=== PATIENT | male | born 1990 | race Hispanic/Latino ===

== ENCOUNTER 2023-12-14 06:31 | Emergency (ER) | payer SELFPAY ==
--- OUTSIDE RECORDS SUMMARY | 2023-12-14 06:33 | XMS REPORT | Continuity of Care Document ---
Author Name Unknown Address [address] [place] [address] [place] Address [address] [facility] 1 495 [place] [address] Care Team Providers Care Banking Consultant Name Role Phone Unavailable Unavailable Unavailable Encounters Start Date/Time End Date/Time Encounter Type Admission Type Attending Clinicians Care Facility Care Department Encounter ID Source 2023-09-19 09:31:42 2023-09-19 09:31:42 Outpatient [facility] [id number] Shantanu Young
[2023-12-14 07:08] LABS: Absolute Basophils 0.1 K/uL (0-0.5); Absolute Lymphocytes (CBC) 1.7 K/uL (0.7-4.9); Absolute Monocytes 1.5 K/uL (0.1-1.3); Absolute Neutrophil 11.2 K/uL (1.8-8.0); Basophils % 0.4 % (0-1.3); Eosinophils % 0.2 % (0-4.4); Hemoglobin 16.5 g/dL (13.6-17.9); Lymphocytes % 11.5 % (15.3-44.8); MCH 31.5 pg (27.0-35.0); MCHC 33.6 g/dL (32.0-36.0); MCV 93.9 fL (80-100); MPV 7.9 fL (7.6-11.3); Monocytes % 10.3 % (3.3-12.3); Neutrophils % 77.6 % (41.7-73.7); Nucleated Red Blood Cells % 0.1 % (0-0); Platelets 328 thou/uL (152-406); RBC Red Blood Cell Count 5.22 M/uL (4.33-5.43); Red Cell Distribution Width 14.8 % (12.1-15.2)
[2023-12-14 07:27] LABS: Albumin 3.7 g/dL (3.4-5.0); Albumin/Globulin Ratio 0.9 (1.1-1.8); Anion Gap 10.3 mEq/L (5.0-15.0); Bilirubin Total 1.2 mg/dL (0.2-1.0); Globulin 4.2 g/dL (2.3-3.5); Potassium 3.3 mEq/L (3.5-5.1); Protein, Total 7.9 g/dL (6.4-8.2)
--- NOTE | 2023-12-14 08:18 | RAD REPORT ---
EXAM DESCRIPTION: CT - FC CLINICAL HISTORY: SWELLING COMPARISON: No comparisons TECHNIQUE: Axial thin cut CT images of the face were obtained with sagittal and coronal reconstructi on images, following intravenous administration of 100 mL Isovue-300. All CT scans are performed using dose optimization technique as appropriate and may include automated exposure control or mA/KV adjustment according to patient size. FINDINGS: Multiple periapical collections, including sizable collections along the roots of the maxi llary lateral incisors, and a smaller collection at the root of the left maxillary central incisor, w hich demonstrates a small buccal cortex defect. Overlying subperiosteal collection with fluid and gas within, with marginal enhancement, measuring 9 mm in greatest diameter and 3 mm in thickness. Pronounced overlying soft tissue swelling of the left cheek and upper lip. No acute facial bone fracture is seen.The mandible is intact. The globes and orbital contents are grossly unremarkable.The paranasal sinuses and mastoids are clear . IMPRESSION: Periapical abscesses along the maxillary incisors, with a small buccal cortex defect eliot ng the left central maxillary incisor collection. A 9 mm subperiosteal abscess overlies this collecti on, with adjacent pronounced soft tissue swelling of the left cheek and upper lip.
[2023-12-14] MEDS ORDERED: NS KCL 20MEQ 1,000 ML IV ONE (08:23)
--- NOTE | 2023-12-14 08:30 | EDPHYS ---
Physician Documentation [facility] Name: Lee Reynoso Age: 33 yrs Sex: Male : 1990 Arrival Date: 12/14/2023 Time: : Bed 15 Private MD: ED Physician Zeb Ojeda HPI: 12/13 06:48 This 33 yrs old Male presents to ER via Unassigned with complaints of christiano Toothache, Lips Swelling, Facial Swelling. 06:48 The patient presents with swelling. christiano Historical: - Allergies: 06:50 No Known Allergies; rg5 - PMHx: 06:50 None; rg5 - Immunization history:: Adult Immunizations up to date. - Infectious Disease History:: Denies. - Family history:: not pertinent. - Social history:: Smoking status: Patient denies any tobacco usage or history of. ROS: 06:48 Constitutional: Negative for fever, chills, and weight loss, Eyes: Negative for injury, christiano pain, redness, and discharge, Neck: Negative for injury, pain, and swelling, Cardiovascular: Negative for chest pain, palpitations, and edema, Respiratory: Negative for shortness of breath, cough, wheezing, and pleuritic chest pain, Abdomen/GI: Negative for abdominal pain, nausea, vomiting, diarrhea, and constipation, Back: Negative for injury and pain, : Negative for injury, bleeding, discharge, and swelling, MS/Extremity: Negative for injury and deformity, Skin: Negative for injury, rash, and discoloration, Neuro: Negative for headache, weakness, numbness, tingling, and seizure, Psych: Negative for depression, anxiety, suicide ideation, homicidal ideation, and hallucinations, Allergy/Immunology: Negative for hives, rash, and allergies, Endocrine: Negative for neck swelling, polydipsia, polyuria, polyphagia, and marked weight changes, Hematologic/Lymphatic: Negative for swollen nodes, abnormal bleeding, and unusual bruising, 06:48 ENT: Positive for left nasolabial swelling, red, Exam: 06:48 Constitutional: This is a well developed, well nourished patient who is awake, alert, christiano and in no acute distress. Head/Face: Normocephalic, atraumatic. Eyes: Pupils equal round and reactive to light, extra-ocular motions intact. Lids and lashes normal. Conjunctiva and sclera are non-icteric and not injected. Cornea within normal limits. Periorbital areas with no swelling, redness, or edema. Neck: Trachea midline, no thyromegaly or masses palpated, and no cervical lymphadenopathy. Supple, full range of motion without nuchal rigidity, or vertebral point tenderness. No Meningismus. Chest/axilla: Normal chest wall appearance and motion. Nontender with no deformity. No lesions are appreciated. Cardiovascular: Regular rate and rhythm with a normal S1 and S2. No gallops, murmurs, or rubs. Normal PMI, no JVD. No pulse deficits. Respiratory: Lungs have equal breath sounds bilaterally, clear to auscultation and percussion. No rales, rhonchi or wheezes noted. No increased work of breathing, no retractions or nasal flaring. Abdomen/GI: Soft, non-tender, with normal bowel sounds. No distension or tympany. No guarding or rebound. No evidence of tenderness throughout. Back: No spinal tenderness. No costovertebral tenderness. Full range of motion. Male : Normal genitalia with no discharge or lesions. Skin: Warm, dry with normal turgor. Normal color with no rashes, no lesions, and no evidence of cellulitis. MS/ Extremity: Pulses equal, no cyanosis. Neurovascular intact. Full, normal range of motion. Neuro: Awake and alert, GCS 15, oriented to person, place, time, and situation. Cranial nerves II-XII grossly intact. Motor strength 5/5 in all extremities. Sensory grossly intact. Cerebellar exam normal. Normal gait. Psych: Awake, alert, with orientation to person, place and time. Behavior, mood, and affect are within normal limits. 06:48 Head/face: Noted is swelling, that is moderate, of the left cheek, mouth and left jaw, Vital Signs: 06:35 BP 136 / 89; Pulse 113; Resp 19 S; Temp 98.1(T); Pulse Ox 98% on R/A; Weight 117.93 kg; rg5 Height 5 ft. 8 in. ; 07:49 BP 137 / 94; Pulse 115; Resp 16; Pulse Ox 98% ; bp 08:50 BP 136 / 94; Pulse 127; Resp 16; Pulse Ox 98% ; bp 06:35 Body Mass Index 39.53 (117.93 kg, 172.72 cm) rg5 MDM: 06:36 Patient medically screened. [facility] 06:51 Differential diagnosis: abscess, cellulitis, insect bite. Data reviewed: vital signs, [facility] nurses notes, lab test result(s). Consideration of Admission/Observation Escalation of care including admission/observation considered. I considered the following discharge prescriptions or medication management in the emergency department Medications were administered in the Emergency Department. See MAR. Independent interpretation of the following test(s) in the Emergency Department CT Scan: My interpretation is max face ct. Test considered but Not performed: EKG: no ekg. Historians other than the Patient: patient well informed. Care significantly affected by the following chronic conditions: none. Counseling: I had a detailed discussion with the patient and/or guardian regarding the historical points, exam findings, and any diagnostic results supporting the discharge/admit diagnosis, lab results, radiology results. 12/13 06:47 Order name: CBC with Diff; Complete Time: 08:08 [facility] 12/13 06:47 Order name: Comprehensive Metabolic Panel; Complete Time: 08:08 [facility] 12/13 06:47 Order name: CT Maxillofacial W/cont; Complete Time: 08:27 [facility] 12/13 08:40 Order name: NPO; Complete Time: 09:00 [facility] Administered Medications: 07:15 Drug: Piperacillin-Tazobactam IVPB 3.375 grams IVPB once over 60 mins; (mix in NS 100 bp mL) Route: IVPB; Infused Over: 60 mins; Site: right antecubital; 09:27 Follow up: IV Status: Completed infusion; IV Intake: 100ml bp 07:15 Drug: morphine IVP or IV 4 mg IVP once over 4 mins Route: IVP; Infused Over: 4 mins; bp Site: right antecubital; 09:27 Follow up: Response: No adverse reaction bp 07:15 Drug: Ondansetron IVP 4 mg IVP once; over 2 minutes Route: IVP; Site: right antecubital;bp 09:27 Follow up: Response: No adverse reaction bp 07:15 Drug: Famotidine IVP 20 mg IVP once; dilute with 10 mL 0.9% NaCl; give over 2 minutes bp Route: IVP; Site: right antecubital; 09:27 Follow up: Response: No adverse reaction bp 07:15 Drug: NS 0.9% IV 1000 ml IV at 1 bolus Per protocol; 1000 mL bolus Route: IV; Rate: 1 bp bolus; Site: right antecubital; 09:27 Follow up: IV Status: Completed infusion; IV Intake: 1000ml bp 08:15 Drug: NS 0.9% with KCl IV 20 mEq/L 1000 ml IV at 125 ml/hr continuous Route: IV; Rate: bp 125 ml/hr; Site: right antecubital; 09:28 Follow up: IV Status: Infusion continued upon transfer bp 09:00 Drug: vancoMYCIN IVPB 1.5 grams IVPB at calculated rate once Route: IVPB; Rate: bp calculated rate; Site: right antecubital; 09:28 Follow up: IV Status: Infusion continued upon transfer bp 10:17 Drug: morphine IVP or IV 4 mg IVP once over 4 mins Route: IVP; Infused Over: 4 mins; bp Site: right antecubital; Disposition Summary: 12/14/23 08:30 Transfer Ordered Notes: Transfer Location: [facility]System christiano Reason: Higher level of care christiano Condition: Stable christiano Problem: new christiano Symptoms: have worsened christiano Accepting Physician: to rust(12/14/23 10:38) aa5 Diagnosis - Dental caries, unspecified christiano - Dental root caries - maxillary abscesses, a 9 mm subperiostal abscess christiano - Elevated white blood cell count christiano Forms: - Medication Reconciliation Form christiano - SBAR form christiano Signatures: Dispatcher [employer] Zeb Juan MD MD cha Calderon, Audri RN RN aa5 Gurmeet Bloom RN RN bp Gallardo, Rommel, RN RN rg5 Corrections: (The following items were deleted from the chart) 10:38 08:30 to rust christiano aa5
--- NOTE | 2023-12-14 08:30 | ER ---
Nurse's Notes [facility] Name: Lee Reynoso Age: 33 yrs Sex: Male : 1990 Arrival Date: 12/14/2023 Time: 06:31 Bed 15 Private MD: Diagnosis: Dental caries, unspecified;Dental root caries-maxillary abscesses, a 9 mm subperiostal abscess;Elevated white blood cell count Presentation: 12/13 06:35 Chief complaint: Patient states: I have been having a tooth ache for the past two days rg5 and since yesterday my left side of my face started to swollen really bad. 06:35 Coronavirus screen: Vaccine status: Patient reports being unvaccinated. Ebola Screen: rg5 No symptoms or risks identified at this time. Initial Sepsis Screen: Does the patient meet any 2 criteria? No. Patient's initial sepsis screen is negative. Does the patient have a suspected source of infection? No. Patient's initial sepsis screen is negative. Risk Assessment: Do you want to hurt yourself or someone else? Patient reports no desire to harm self or others. Onset of symptoms was December 14, 2023. 06:35 Method Of Arrival: Ambulatory rg5 06:35 Acuity: MILAGROS 3 rg5 Triage Assessment: 03:42 General: Appears uncomfortable, Behavior is cooperative. Pain: Complains of pain in rg5 left cheek and mouth Pain currently is 10 out of 10 on a pain scale. Quality of pain is described as throbbing. EENT: Reports pain in left cheek and mouth. EENT:. EENT: Reports tooth ache. Neuro: Level of Consciousness is awake, alert, obeys commands, Oriented to person, place, time, situation. Cardiovascular: Patient's skin is warm and dry. Respiratory: Airway is patent Respiratory effort is even, unlabored, Respiratory pattern is regular, symmetrical. GI: No signs and/or symptoms were reported involving the gastrointestinal system. : No signs and/or symptoms were reported regarding the genitourinary system. Derm: Skin is pink, warm \T\ dry. Musculoskeletal: Circulation, motion, and sensation intact. Range of motion: Swelling present in mouth and left cheek. Historical: - Allergies: 06:50 No Known Allergies; rg5 - PMHx: 06:50 None; rg5 - Immunization history:: Adult Immunizations up to date. - Infectious Disease History:: Denies. - Family history:: not pertinent. - Social history:: Smoking status: Patient denies any tobacco usage or history of. Screenin:53 Abuse screen: Denies threats or abuse. Denies injuries from another. Nutritional rg5 screening: No deficits noted. Tuberculosis screening: No symptoms or risk factors identified. 07:00 [facility] ED Fall Risk Assessment (Adult) History of falling in the last 3 months, bp including since admission No falls in past 3 months (0 pts) Confusion or Disorientation No (0 pts) Intoxicated or Sedated No (0 pts) Impaired Gait No (0 pts) Mobility Assist Device Used No (0 pt) Altered Elimination No (0 pt) Score/Fall Risk Level 0 - 2 = Low Risk Oriented to surroundings. Assessment: 07:00 General: Appears distressed, uncomfortable, obese, Behavior is cooperative, appropriate bp for age, anxious. Pain: Complains of pain in face. Neuro: No deficits noted. Cardiovascular: Rhythm is sinus tachycardia. Respiratory: No deficits noted. GI: No signs and/or symptoms were reported involving the gastrointestinal system. : No signs and/or symptoms were reported regarding the genitourinary system. EENT: No deficits noted. Derm: No deficits noted. Musculoskeletal: No deficits noted. 08:50 Reassessment: REPORT TO CHRISTOPHE CALIXTO FOR TRANSFER TO [facility] ER FOR OMFS. bp Vital Signs: 06:35 BP 136 / 89; Pulse 113; Resp 19 S; Temp 98.1(T); Pulse Ox 98% on R/A; Weight 117.93 kg; rg5 Height 5 ft. 8 in. ; 07:49 BP 137 / 94; Pulse 115; Resp 16; Pulse Ox 98% ; bp 08:50 BP 136 / 94; Pulse 127; Resp 16; Pulse Ox 98% ; bp 06:35 Body Mass Index 39.53 (117.93 kg, 172.72 cm) rg5 ED Course: 06:33 Patient arrived in ED. [email or web address] 06:36 Zeb Ojeda MD is Attending Physician. [facility] 06:50 Triage completed. rg5 07:00 Patient has correct armband on for positive identification. bp 07:00 Inserted saline lock: 20 gauge in right antecubital area, using aseptic technique. bp Blood collected. 07:02 Gurmeet Bloom, RN is Primary Nurse. bp 07:37 CT Maxillofacial W/cont In Process Unspecified. EDMS 08:30 Transfer initiated with [facility] transfer center. em1 08:40 Pt accepted in transfer to [facility], ER to ER transfer. em1 08:51 Provided Education on: TRANSFER. bp 08:51 No provider procedures requiring assistance completed. Patient transferred, IV remains bp in place. 09:11 Transportation arranged through [facility]. em1 Administered Medications: 07:15 Drug: Piperacillin-Tazobactam IVPB 3.375 grams IVPB once over 60 mins; (mix in NS 100 bp mL) Route: IVPB; Infused Over: 60 mins; Site: right antecubital; 09:27 Follow up: IV Status: Completed infusion; IV Intake: 100ml bp 07:15 Drug: morphine IVP or IV 4 mg IVP once over 4 mins Route: IVP; Infused Over: 4 mins; bp Site: right antecubital; 09:27 Follow up: Response: No adverse reaction bp 07:15 Drug: Ondansetron IVP 4 mg IVP once; over 2 minutes Route: IVP; Site: right antecubital;bp 09:27 Follow up: Response: No adverse reaction bp 07:15 Drug: Famotidine IVP 20 mg IVP once; dilute with 10 mL 0.9% NaCl; give over 2 minutes bp Route: IVP; Site: right antecubital; 09:27 Follow up: Response: No adverse reaction bp 07:15 Drug: NS 0.9% IV 1000 ml IV at 1 bolus Per protocol; 1000 mL bolus Route: IV; Rate: 1 bp bolus; Site: right antecubital; 09:27 Follow up: IV Status: Completed infusion; IV Intake: 1000ml bp 08:15 Drug: NS 0.9% with KCl IV 20 mEq/L 1000 ml IV at 125 ml/hr continuous Route: IV; Rate: bp 125 ml/hr; Site: right antecubital; 09:28 Follow up: IV Status: Infusion continued upon transfer bp 09:00 Drug: vancoMYCIN IVPB 1.5 grams IVPB at calculated rate once Route: IVPB; Rate: bp calculated rate; Site: right antecubital; :28 Follow up: IV Status: Infusion continued upon transfer bp 10:17 Drug: morphine IVP or IV 4 mg IVP once over 4 mins Route: IVP; Infused Over: 4 mins; bp Site: right antecubital; Medication: 07:00 VIS not applicable for this client. bp Intake: 09:27 IV: 100ml; Total: 100ml. bp 09:27 IV: 1000ml; Total: 1100ml. bp Outcome: 08:30 ER care complete, transfer ordered by . christiano 10:38 Patient left the ED. aa5 Signatures: Dispatcher [employer] EDMS Zeb Ojeda MD MD cha Martinez, Eric em1 Francesca Javier, RN RN aa5 Gurmeet Bloom RN RN bp Irlanda Burciaga [email or web address] Felipe Chapman, RN RN rg5
[2023-12-14] MEDS ORDERED: VANCOMYCIN 1.5 GM in NA CHLORIDE 0.9% 500 ML IVPB ONE (09:00)
[2023-12-14] MEDS ORDERED: MORPHINE 4 MG/ML SYR ONE (10:10)
[2023-12-14 10:46] VITALS: BP 136/94; TEMP 98.1; O2SAT 98
== END 2023-12-14 10:38 | disposition short-term general hospital (02) ==
LOC: ER 06:31
DX: K04.7 Periapical abscess without sinus (principal); M27.2 Inflammatory conditions of jaws; K02.9 Dental caries, unspecified
CPT/HCPCS: 36415; 70487; 80053; 85025; 96365; 96375; 99284; J3480; J7040; Q9967

== ENCOUNTER 2024-04-22 11:47 | Emergency (ER) | payer SELFPAY ==
--- OUTSIDE RECORDS SUMMARY | 2024-04-22 11:51 | XMS REPORT | Continuity of Care Document ---
Author Name Unknown Address [address] [facility]. [address] [place] [address] [facility] thconnect Address [address] [facility] [address] [place] [address] Care Team Providers Care Aviation Tactical Readiness Officer Name Role Phone PCP, PATIENT DOES NOT HAVE A Primary Care Physic janine Unavailable CARITO JUAREZ Attending Clinician Unavailchan e Carito Juarez DDS Attending Clinician [phone] Carito Juarez DDS Admitting Clinician [phone] CARITO JUAREZ Admitting Clinician Unavailabl e Problems Condition Name Condition Details Condition Category Status Onset Date Resolution Date Last Treatment Date Treating Clinician Comments Source Oral abscess Oral abscess Disease Active 12-13 00:00: 00 [facility] Obesity (BMI 30-39.9) Obesity (BMI 30-39.9) Disease Active 12-13 00:00: 00 [facility] Allergies, Adverse Reactions, Alerts Allergy Name Allergy Type Status Severity Reaction(s) Onset Date Inactive Date Treating Clinician Comments Source NO KNOWN ALLERGIE S Drug Class Active [facility] Social History Social Habit Start Date Stop Date Quantity Comments Source Sexual orientation [facility] Sex assigned at 1990 00:00:00 1990 00:00:00 [facility] Smoking Status Start Date Stop Date Source Tobacco smoking consumption unknown [facility] Medications Ordered Medication Name Filled Medication Name Start Date Stop Date Current Medication? Ordering Clinician Indication Dosage Frequency Signature (SIG) Comments Components Source lactated ringers IV infusion 1,000 mL 12-14 15:30: 00 12-14 20:08 :23 No 1000mL at 75 mL/hr, 1,000 mL, IV Infusion, CONTINUOUS , Starting on Mon12/15/23 at 1030, Until Mon12/15/23 at 1508, Routine, PACU [facility] bupivacaine (preserv free) 0.5% (SENSORCAIN E MPF) injection 12-14 15:14: 00 12-14 16:16 :13 No PRN, Starting on Mon12/15/23 at 1014, Until Mon12/15/23 at 1116, Routine, Intra-op [facility] lidocaine 2% - epinephrine 1:100,000 syringe 12-14 15:06: 00 12-14 16:16 :13 No PRN, Starting on Mon12/15/23 at 1006, Until Mon12/15/23 at 1116, Routine, Intra-op [facility] pantoprazol e (PROTONIX) EC tablet 40 mg 12-14 14:00: 00 12-14 20:08 :23 No 40mg 40 mg, Oral, DAILY, First dose on Mon12/15/23 at 0900, Until Discontinu ed, Routine [facility] lactated ringers IV infusion 1,000 mL 12-14 11:15: 00 12-14 20:08 :23 No 1000mL at 125 mL/hr, 1,000 mL, IV Infusion, CONTINUOUS , Starting on Mon12/15/23 at 0615, Until Mon12/15/23 at 1508, Routine [facility] chlorhexidi ne (PERIDEX) 0.12 % mouthwash 15 mL 12-14 01:00: 12-14 20:08 :23 No 15mL 15 mL, Oral (Swish And Spit Out), BID, First dose on Tiffanie 12/14/23 at 2000, Until Discontinu ed, [facility] ib[facility] 600 mg tablet 12-14 00:00: 00 Yes [id number] 600mg Take 1 tablet by mouth every 6 (six) hours as needed for Pain (scale 4-6). [facility] chlorhexidi ne 0.12 % mouthwash 12-14 00:00: 00 12-31 04:59 :00 No [id number] 15mL Swish and spit out 15 mL in the morning and 15 mL in the evening. Do all this for 14 days. [facility] HYDROcodone -acetaminop hen 5-325 mg tablet 12-14 00:00: 00 12-22 04:59 :00 No [id number] 1{tbl} Take 1 tablet by mouth every 6 (six) hours as needed for Pain (scale 7-10) for up to 7 days. Indication s: acute pain [facility] amoxicillin -clavulanat e (AUGMENTIN) 875-125 mg per tablet 12-14 00:00: 00 12-22 04:59 :00 No [id number] 1{tbl} Take 1 tablet by mouth in the morning and 1 tablet in the evening. Do all this for 7 days. [facility] acetaminoph en (TYLENOL) tablet 500 mg 12-13 23:00: 00 12-14 20:08 :23 No 500mg 500 mg, Oral, Q6H, First dose on Tiffanie 12/14/23 at 1800, Until Discontinu ed, [facility] 600 mg 12-13 23:00: 00 12-14 20:08 :23 No 600mg 600 mg, Oral, Q6H, First dose on Tiffanie 12/14/23 at 1800, Until Discontinu ed, Routine [facility] ondansetron (ZOFRAN (PF)) injection 4 mg 12-13 22:25: 26 12-14 20:08 :23 No 4mg 4 mg, Slow IV Push, Q6HPRN, Nausea and Vomiting (N/V), Starting on Mon12/14/23 at 1725, Doses of ondansetro n 16 mg and above need to be administer ed via IV piggyback. For Dose >=24mg ECG monitoring is advisable. [facility] ampicillin- sulbactam (UNASYN) 3 g in NaCl 0.9% (NS) 100 mL VIAL-MATE 12-13 20:15: 00 12-14 20:08 :23 No 3g 3 g, IV Piggyback, Q6H ABX, 16 doses, First dose on Mon12/14/23 at 1515, Last dose on Mon12/18/23 at 0915, Administer over 30 Minutes, 100 mL, Reason for Anti-Infec tive: Surgical Prophylaxi s, Surgical Prophylaxi s: Oral and/or Maxillofac ial, Duration of therapy: within 24 hours of surgery [facility] lactated ringers IV infusion 1,000 mL 12-13 19:15: 00 12-14 11:13 :50 No 1000mL at 42 mL/hr, 1,000 mL, IV Infusion, CONTINUOUS , Starting on Mon12/14/23 at 1415, Until Mon12/15/23 at 0613, Routine [facility] HYDROcodone -acetaminop hen (NORCO 5) 5-325 mg tablet 1 tablet 12-13 19:00: 44 12-14 20:08 :23 No 1{tbl} 1 tablet, Oral, Q6HPRN, Starting on Mon12/14/23 at 1400, Until Mon12/15/23 at 1508, Routine, Pain (scale 7-10) [facility] Vital Signs Vital Name Observation Time Observation Value Comments S amy Systolic blood pressure 2023-12-15 17:30:00 133 mm[Hg] [facility] Diastolic blood pressure 2023-12-15 17:30:00 81 mm[Hg] [facility] Heart rate 2023-12-15 17:30:00 85 /min [facility] Body temperature 2023-12-15 17:30:00 36.28 [facility] Respiratory rate 2023-12-15 17:30:00 16 /min [facility] Oxygen saturation in Arterial blood by Pulse oximetry 2023-12-15 17:30:00 94 /min [facility] Body height 2023-12-14 21:34:00 172.7 cm [facility] Body weight 2023-12-14 21:34:00 117.935 kg [facility] BMI 2023-12-14 21:34:00 39.53 kg/m2 [facility] Systolic blood pressure 2023-12-15 12:57:00 140 mm[Hg] [facility] Diastolic blood pressure 2023-12-15 12:57:00 85 mm[Hg] [facility] Heart rate 2023-12-15 12:57:00 77 /min [facility] Body temperature 2023-12-15 12:57:00 36.33 [facility] Respiratory rate 2023-12-15 12:57:00 16 /min [facility] Oxygen saturation in Arterial blood by Pulse oximetry 2023-12-15 12:57:00 97 /min [facility] Body height 2023-12-14 21:34:00 172.7 cm [facility] Body weight 2023-12-14 21:34:00 117.935 kg [facility] BMI 2023-12-14 21:34:00 39.53 kg/m2 [facility] Procedures Procedure Date / Time Performed Performing Clinicia n Source INCISION AND DRAINAGE ORAL CAVITY 2023-12-15 14:26:00 Carito Juarez [facility] TOOTH EXTRACTION 2023-12-15 14:26:00 Carito Juarez [facility] MAGNESIUM 2023-12-15 11:35:00 Aryan Manuel [facility] BASIC METABOLIC PANEL (NA, K, CL, CO2, GLUCOSE, BUN, CREATININE, CA) 2023-12-15 11:35:00 Khoa Manuel [facility] MAGNESIUM 2023-12-15 11:35:00 Valier, Aryan doan [facility] BASIC METABOLIC PANEL (NA, K, CL, CO2, GLUCOSE, BUN, CREATININE, CA) 2023-12-15 11:35:00 Khoa Manuel [facility] PHOSPHORUS 2023-12-15 09:46:00 Mar Aryan doan [facility] MAGNESIUM 2023-12-15 09:46:00 Mar, Aryan franki [facility] BASIC METABOLIC PANEL (NA, K, CL, CO2, GLUCOSE, BUN, CREATININE, CA) 2023-12-15 09:46:00 Khoa Manuel [facility] CBC WITH DIFF 2023-12-15 09:46:00 Aryan Manuel [facility] PHOSPHORUS 2023-12-15 09:46:00 Aryan Manuel franki [facility] MAGNESIUM 2023-12-15 09:46:00 Aryan Manuel [facility] BASIC METABOLIC PANEL (NA, K, CL, CO2, GLUCOSE, BUN, CREATININE, CA) 2023-12-15 09:46:00 Khoa Manuel [facility] CBC WITH DIFF 2023-12-15 09:46:00 Aryan Manuel franki [facility] CREATININE 2023-12-14 22:18:00 Carito Juarez [facility] CREATININE 2023-12-14 22:18:00 Carito Juarez [facility] Encounters Start Date/Time End Date/Time Encounter Type Admission Type Attending [facility] Care Facility Care Department Encounter ID Source 2024-01-15 14:00:00 2024-01-15 14:00:00 Outpatient R CARITO JUAREZ [facility] [id number] [facility] 2023-12-14 12:18:00 2023-12-15 13:08:00 Hospital Encounter Carito Juarez [facility] [id number] [facility] 2023-12-14 12:18:00 2023-12-15 13:08:00 Inpatient X CARITO JUAREZ [facility] [id number] [facility] 2023-12-15 09:00:00 2023-12-15 10:43:00 Surgery Carito Juarez [facility] [id number] [facility] 2023-09-19 09:31:42 2023-09-19 09:31:42 Outpatient [facility] [id number] Shantanu Young Results Test Description Test Time Test Comments Results Result Co mments Source [facility] 12:19:05* Test Item Value Reference Range Interpretation Comme nts MAGNESIUM (test code = 1833788576) 2.0 mg/dL 1.7-2.4 Lab Interpretation (test cod e = 96279-9) [facility] (NA, K, CL, CO2, GLUCOSE, BUN, CREATININE, CA)2023-12-15 12:19:05* Test Item Value Reference Range Interpretation Comme nts NA (test code = 9686041069) 135 mmol/L 135-145 K (test code = 4952842000) 3.8 mmol/L 3.5-5.0 CL (test code = 3656932357) 105 mmol/L 98-108 CO2 TOTAL (test code = 4556264021) 25 mmol/L 23-31 AGAP (test code = 6559604729) 5 2-16 BUN (test code = 2611622711) 9 mg/dL 7-23 GLUCOSE (test code = 8565225336) 109 mg/dL 70-110 CREATININE (test code = 2160-0) 0.74 mg/dL 0.60-1.25 CALCIUM (test code = 8284605961) 8.0 mg/dL 8.6-10.6 L eGFR (test code = 94319-1) 124.2 mL/min/1.73m2 CKD-EPI eGFR (2020). Assuming creatinine has been stable day-to-day for at least three months, the eGFR indicates Category G1 (>= 90 mL/min/1.73 m2) Lab Interpretation (test code = 81003-4) [facility]normal [facility] 12:19:05* Test Item Value Reference Range Interpretation Comme nts MAGNESIUM (test code = 8370496873) 2.0 mg/dL 1.7-2.4 Lab Interpretation (test cod e = 86722-3) Normal [facility] Metabolic Panel (NA, K, CL, CO2, GLUCOSE, BUN, CREATININE, CA)2023-12-15 11:10:46* Test Item Value Reference Range Interpretation Comme nts NA (test code = 7340076919) 136 mmol/L 135-145 K (test code = 0018416002) 2.6 mmol/L 3.5-5.0 LL Slight hemolysis CL (test code = 1926471312) 118 mmol/L 98-108 H CO2 TOTAL (test code = 8615615217) 18 mmol/L 23-31 L AGAP (test code = 2916359405) 2-16 L BUN (test code = 0729923886) 6 mg/dL 7-23 L Slight hemolysis GLUCOSE (test code = 4741591132) 70 mg/dL 70-110 CREATININE (test code = 2160-0) 0.43 mg/dL 0.60-1.25 L CALCIUM (test code = 7551519733) 4.5 mg/dL 8.6-10.6 LL eGFR (test code = 20880-5) 146.4 mL/min/1.73m2 CKD-EPI eGFR (2020). Assuming creatinine has been stable day-to-day for at least three months, the eGFR indicates Category G1 (>= 90 mL/min/1.73 m2) Lab Interpretation (test code = 93923-7) Abnormal [facility] Metabolic Panel (NA, K, CL, CO2, GLUCOSE, BUN, CREATININE, CA)2023-12-15 11:10:46* Test Item Value Reference Range Interpretation Comme nts NA (test code = 9916963258) 136 mmol/L 135-145 K (test code = 1359844401) 2.6 mmol/L 3.5-5.0 LL Slight hemolysis CL (test code = 9631206273) 118 mmol/L 98-108 H CO2 TOTAL (test code = 5435375767) 18 mmol/L 23-31 L AGAP (test code = 0844824848) 2-16 L BUN (test code = 1610450332) 6 mg/dL 7-23 L Slight hemolysis GLUCOSE (test code = 2065734455) 70 mg/dL 70-110 CREATININE (test code = 2160-0) 0.43 mg/dL 0.60-1.25 L CALCIUM (test code = 5525397923) 4.5 mg/dL 8.6-10.6 LL eGFR (test code = 75113-8) 146.4 mL/min/1.73m2 CKD-EPI eGFR (2020). Assuming creatinine has been stable day-to-day for at least three months, the eGFR indicates Category G1 (>= 90 mL/min/1.73 m2) Lab Interpretation (test code = 30356-5) [facility] 11:05:59* Test Item Value Reference Range Interpretation Comme nts PHOSPHORUS (test code = 7691924201) 2.0 mg/dL 2.5-5.0 L Lab Interpretation (test cod e = 24332-6) [facility]normal [facility] 11:05:59* Test Item Value Reference Range Interpretation Comme nts MAGNESIUM (test code = 6962074174) 1.2 mg/dL 1.7-2.4 L Lab Interpretation (test cod e = 91732-8) [facility]normal [facility] 11:05:59* Test Item Value Reference Range Interpretation Comme nts PHOSPHORUS (test code = 8094923473) 2.0 mg/dL 2.5-5.0 L Lab Interpretation (test cod e = 00452-8) [facility]normal [facility] 11:05:59* Test Item Value Reference Range Interpretation Comme nts MAGNESIUM (test code = 1967156525) 1.2 mg/dL 1.7-2.4 L Lab Interpretation (test cod e = 55680-0) [facility]normal [facility] [id number] 10:45:58* Test Item Value Reference Range Interpretation Comme nts WBC (test code = 6690-2) 9.54 4.20-10.70 RBC (test code = 789-8) 3.83 4.26-5.52 L HGB (test code = 718-7) 12.1 g/dL 12.2-16.4 L HCT (test code = 4544-3) 36.5 % 38.4-49.3 L MCV (test code = 787-2) 95.3 fL 81.7-95.6 MCH (test code = 785-6) 31.6 pg 26.1-32.7 MCHC (test code = 786-4) 33.2 g/dL 31.2-35.0 RDW-SD (test code = 59659-5) 51.5 fL 38.5-51.6 RDW-CV (test code = 788-0) 14.6 % 12.1-15.4 PLT (test code = 777-3) 227 150-328 MPV (test code = 03194-3) 10.2 fL 9.8-13.0 NRBC/100 WBC (test code = 5931526044) 0.0 0.0-10.0 NRBC x10^3 (test code = 0507288960) See_Comment [Automated messa ge] The system which generated this result transmitted reference range: 10*3/?L. The reference range was not used to interpret this result as normal/abnormal. GRAN MAT (NEUT) % (test code = 770-8) 65.8 % IMM GRAN % (test code = 0673145657) 0.40 % LYMPH % (test code = 736-9) 22.2 % MONO % (test code = 5905-5) 10.9 % EOS % (test code = 713-8) 0.6 % BASO % (test code = 706-2) 0.1 % GRAN MAT x10^3(ANC) (test code = 7789750386) 6.27 10*3/uL 1.99-6.95 IMM GRAN x10^3 (test code = 9609484514) 0.04 10*3/uL 0.00-0.06 LYMPH x10^3 (test code = 731-0) 2.12 10*3/uL 1.09-3.23 MONO x10^3 (test code = 742-7) 1.04 10*3/uL 0.36-1.02 H EOS x10^3 (test code = 711-2) 0.06 10*3/uL 0.06-0.53 BASO x10^3 (test code = 704-7) 0.01-0.09 Lab Interpretation (test code = 77569-4) Abnormal [facility] with [id number] 10:45:58* Test Item Value Reference Range Interpretation Comme nts WBC (test code = 6690-2) 9.54 4.20-10.70 RBC (test code = 789-8) 3.83 4.26-5.52 L HGB (test code = 718-7) 12.1 g/dL 12.2-16.4 L HCT (test code = 4544-3) 36.5 % 38.4-49.3 L MCV (test code = 787-2) 95.3 fL 81.7-95.6 MCH (test code = 785-6) 31.6 pg 26.1-32.7 MCHC (test code = 786-4) 33.2 g/dL 31.2-35.0 RDW-SD (test code = 76726-6) 51.5 fL 38.5-51.6 RDW-CV (test code = 788-0) 14.6 % 12.1-15.4 PLT (test code = 777-3) 227 150-328 MPV (test code = 04156-8) 10.2 fL 9.8-13.0 NRBC/100 WBC (test code = 9417379279) 0.0 0.0-10.0 NRBC x10^3 (test code = 3640875012) See_Comment [Automated messa ge] The system which generated this result transmitted reference range: 10*3/?L. The reference range was not used to interpret this result as normal/abnormal. GRAN MAT (NEUT) % (test code = 770-8) 65.8 % IMM GRAN % (test code = 9882318474) 0.40 % LYMPH % (test code = 736-9) 22.2 % MONO % (test code = 5905-5) 10.9 % EOS % (test code = 713-8) 0.6 % BASO % (test code = 706-2) 0.1 % GRAN MAT x10^3(ANC) (test code = 7398974842) 6.27 10*3/uL 1.99-6.95 IMM GRAN x10^3 (test code = 4480670550) 0.04 10*3/uL 0.00-0.06 LYMPH x10^3 (test code = 731-0) 2.12 10*3/uL 1.09-3.23 MONO x10^3 (test code = 742-7) 1.04 10*3/uL 0.36-1.02 H EOS x10^3 (test code = 711-2) 0.06 10*3/uL 0.06-0.53 BASO x10^3 (test code = 704-7) 0.01-0.09 Lab Interpretation (test code = 77262-5) Abnormal [facility] Procedure Notes Date/Time Note Provider Source 2023-12-15 10:18:29 OMFS BRIEF OPERATIVE NOTE: Pre-op Diagnosis: Left maxillary vestibular abscess 2/2 carious tooth #9-10 Post-op Diagnosis: Same as above Procedure: Intraoral I&D of left maxillary vestibular abscess / infection TOMEKA #9, 10 Attending: Carito Juarez DDS Surgeon: ANDREZ Ackerman Student Services Counselor: ANDREZ Mason Anesthesia: GETA 6.8 cc of 2% Lidocaine with 1:100K epi 5.0 cc of 0.5% Marcaine with 1:200K epi EBL: 5 cc IVF: see anesthesia notes UOP: not measured Specimens: none Complications: none Disposition: The patient was extubated in the OR, and taken to PACU in stable condition. Associated attestation - Carito Juarez DDS - 12/15/2023 10:24 AM CDT I was present for and supervised the entire procedure(s). I agree with Dr. Ackerman's resident note as written on 12/15/2023 . [facility] 2023-12-15 09:39:02 Procedure(s): SURGICAL EXTRACTION - ERUPTED TEETH; SURGICAL EXTRACTION - ERUPTED TEETH; INCISION AND DRAINAGE Pre-Procedure Diagnose(s): Oral abscess; Periapical abscess Post-Procedure Diagnose(s): Oral abscess; Periapical abscess Surgical tooth extraction x 1 (#9) Surgical tooth extraction x 1 (#10) Intraoral incision and drainage of the left maxillary vestibular space infection/abscess [facility] (DENTIST ONLY) STAFF [facility] Notes Date/Time Note Provider Source 2023-12-15 09:14:43 Problem: Pain Goal: Control of pain at or below patient's documented comfort goal Outcome: Progressing as expected Goal: Reduction in pain sensation Outcome: Progressing as expected Problem: Discharge Planning Goal: Adequate for discharge Outcome: Progressing as expected Goal: Effective communication Outcome: Progressing as expected Problem: Falls, Risk of Goal: Absence of falls Outcome: Progressing as expected Problem: Infection Risk Goal: Absence of infection Outcome: Progressing as expected Problem: Bleeding, Risk of Goal: Absence of impaired coagulation signs and symptoms Outcome: Progressing as expected Goal: Absence of active bleeding Outcome: Progressing as expected Problem: Skin integrity Impaired (Risk or Actual) Goal: Wound healing Outcome: Progressing as expected Goal: Prevention of new skin breakdown Outcome: Progressing as expected Problem: Procedure Routine Goal: Absence of post-procedure complications Outcome: Progressing as expected Goal: Knowledge of procedure Outcome: Progressing as expected Problem: Procedure Routine Goal: Absence of post-procedure complications Outcome: Progressing as expected Goal: Knowledge of procedure Outcome: Progressing as expected ET Rebecca Prajapati RN [facility] 2023-12-14 17:59:45 Problem: Pain Goal: Control of pain at or below patient's documented comfort goal Outcome: Progressing as expected Goal: Reduction in pain sensation Outcome: Progressing as expected Problem: Discharge Planning Goal: Adequate for discharge Outcome: Progressing as expected Goal: Effective communication Outcome: Progressing as expected Problem: Falls, Risk of Goal: Absence of falls Outcome: Progressing as expected Problem: Infection Risk Goal: Absence of infection Outcome: Progressing as expected Problem: Bleeding, Risk of Goal: Absence of impaired coagulation signs and symptoms Outcome: Progressing as expected Goal: Absence of active bleeding Outcome: Progressing as expected Problem: Skin integrity Impaired (Risk or Actual) Goal: Wound healing Outcome: Progressing as expected Goal: Prevention of new skin breakdown Outcome: Progressing as expected Problem: Procedure Routine Goal: Absence of post-procedure complications Outcome: Progressing as expected Goal: Knowledge of procedure Outcome: Progressing as expected Bela Paniagua RN [facility] 2023-12-14 15:08:23 Report called to DURGA Mason on 1508 @ this time. INTEGRITY MANAGER to place transportation request via [employer] system. Updated patient / family on progress of transfer. Awaiting transportation. Tom Garcia RN [facility] 2023-12-14 14:26:09 Called to give report, RN to call back. [facility] 2023-12-14 14:24:11 Admin med per MAR, pt in pain, sitting up at side of bed, POC discussed, on the monitor, and call light within reach. [facility] 2023-12-14 12:48:15 Pt reported having no issues with breathing and managing secretions. L facial swelling, amira lip swelling. Pain 9/10, pressure, lungs clear x 4 w/auscultation, skin w/d/I, RR e/u, POC discussed and call light within reach. Pt is A/Ox4/A, RA. Complaints of L upper jaw pain. [facility] 2023-12-14 12:24:24 EMS reported w/L side facial swelling. Started yesterday, worsening. Tooth ache/abscess. Admin morphine at [facility]. Had a 101.4 F, admin 1000 mg Tylenol, admin 25 mg Fentanyl twice in route to ED. NKA, patent airway, manages's secretions. 20g R AC. T [facility] 2023-12-14 12:15:42 Lee Reynoso is a 33 year old male presenting to ED via [place] transferred from [facility] ER accepted by oral surgery for facial abscess. Patient noted to have swelling to face. Airway patent and managing secretions in triage. Oral surgery paged. Patient to room for further eval [facility]
[2024-04-22] MEDS ORDERED: LIDOCAINE 1% MPF 5 ML VIAL ONE (12:52)
[2024-04-22] MEDS ORDERED: HYDROCODONE/APAP 10/325 TAB ONE (12:53)
--- NOTE | 2024-04-22 13:54 | ER ---
Nurse's Notes [facility] Name: Lee Reynoso Age: 34 yrs Sex: Male : 1990 Arrival Date: 04/22/2024 Time: 11:47 Bed 9 Private MD: Diagnosis: Cellulitis and abscess of mouth Presentation: 04/22 12:02 Chief complaint: Patient states: abscess front tooth , swollen sine last night. iw Coronavirus screen: At this time, the client does not indicate any symptoms associated with coronavirus-19. Ebola Screen: No symptoms or risks identified at this time. Initial Sepsis Screen: Does the patient meet any 2 criteria? No. Patient's initial sepsis screen is negative. Does the patient have a suspected source of infection? No. Patient's initial sepsis screen is negative. Risk Assessment: Do you want to hurt yourself or someone else? Patient reports no desire to harm self or others. 12:02 Method Of Arrival: Ambulatory iw 12:02 Acuity: MILAGROS 4 iw 13:17 Onset of symptoms was April 21, 2024. tl4 Historical: - Allergies: 12:04 No Known Allergies; iw - Home Meds: 12:04 None [Active]; iw - PMHx: 12:04 None; iw - PSHx: 12:04 None; iw - Immunization history:: Adult Immunizations unknown. - Infectious Disease History:: Denies. - Social history:: Smoking status: Patient denies any tobacco usage or history of. Patient uses street drugs, marijuana. Screenin:16 [facility] ED Fall Risk Assessment (Adult) History of falling in the last 3 months, tl4 including since admission No falls in past 3 months (0 pts) Confusion or Disorientation No (0 pts) Intoxicated or Sedated No (0 pts) Impaired Gait No (0 pts) Mobility Assist Device Used No (0 pt) Altered Elimination No (0 pt) Score/Fall Risk Level 0 - 2 = Low Risk Oriented to surroundings, Maintained a safe environment, Educated pt \T\ family on fall prevention, incl call for assistance when getting out of bed, Assessed \T\ reinforced patient's understanding of fall precautions. Abuse screen: Denies threats or abuse. Denies injuries from another. Nutritional screening: No deficits noted. Tuberculosis screening: No symptoms or risk factors identified. Assessment: 13:13 General: Appears in no apparent distress. Behavior is calm, cooperative. Pain: tl4 Complains of pain in mouth. Neuro: Level of Consciousness is awake, alert, obeys commands, Oriented to person, place, time, situation, Moves all extremities. Full function Speech is normal. Cardiovascular: Denies chest pain, Capillary refill < 3 seconds Patient's skin is warm and dry. Respiratory: Airway is patent Respiratory effort is even, unlabored, Respiratory pattern is regular, symmetrical, Breath sounds are clear bilaterally. Denies cough, shortness of breath. GI: No signs and/or symptoms were reported involving the gastrointestinal system. : No signs and/or symptoms were reported regarding the genitourinary system. EENT: swelling. Reports pain in mouth. Derm: No signs and/or symptoms reported regarding the dermatologic system. Musculoskeletal: No signs and/or symptoms reported regarding the musculoskeletal system. Vital Signs: 12:02 BP 146 / 97; Pulse 100; Resp 18; Pulse Ox 98% on R/A; Weight 117.93 kg; Height 5 ft. 8 iw in. ; Pain 8/10; 13:15 BP 150 / 101; Pulse 95; Resp 18; Pulse Ox 97% on R/A; Pain 9/10; tl4 14:14 BP 142 / 86; Pulse 80; Resp 16; Temp 98.1(O); Pulse Ox 99% on R/A; Pain 4/10; tl4 12:02 Body Mass Index 39.53 (117.93 kg, 172.72 cm) iw 12:02 Pain Scale: Adult iw 13:15 Pain Scale: Adult tl4 14:14 Pain Scale: Adult tl4 ED Course: 11:50 Patient arrived in ED. mr 11:58 Zeb Ramirez PA is PHCP. cp 11:58 Rowdy Murphy DO is Attending Physician. cp 12:03 Triage completed. iw 12:04 Arm band placed on. iw 13:16 Patient has correct armband on for positive identification. Bed in low position. Call tl4 light in reach. Side rails up X 1. Provided Education on: ed process, call rouse. Client placed on continuous cardiac and pulse oximetry monitoring. NIBP monitoring applied. Door closed. Noise minimized. Lights dimmed. Moved to private room. 13:17 No provider procedures requiring assistance completed. Patient did not have IV access tl4 during this emergency room visit. 14:05 Claudy Matt, RN is Primary Nurse. tl4 Administered Medications: 13:13 Drug: HYDROcodone-acetaminophen PO 10 mg-325 mg 1 tabs PO once Route: PO; tl4 14:05 Follow up: Response: No adverse reaction; Pain is decreased tl4 13:13 Drug: Clindamycin PO 300 mg PO once Route: PO; tl4 14:05 Follow up: Response: No adverse reaction tl4 14:05 Drug: Lidocaine Infiltration (1 %) 5 ml 5 ml Infiltration once; to bedside {Note: tl4 administered by Hailee LOPEZ to affected site.} Volume: 5 ml; Route: Infiltration; 14:06 Follow up: Response: No adverse reaction; Pain is decreased tl4 Medication: 13:16 VIS not applicable for this client. tl4 Outcome: 13:54 Discharge ordered by . diane 14:13 Discharged to home ambulatory, with family, tl4 14:13 Condition: stable 14:13 Discharge instructions given to patient, Instructed on discharge instructions, follow up and referral plans. medication usage, Demonstrated understanding of instructions, follow-up care, medications, Prescriptions given X 2, 14:22 Patient left the ED. tl4 Signatures: Deepti Gonzales, Reg Reg mr Promise Conde RN RN iw Page, Corey, PA PA cp Logdahl, Toni, DURGA RN tl4
--- NOTE | 2024-04-22 13:54 | EDPHYS ---
Physician Documentation [facility] Name: Lee Reynoso Age: 34 yrs Sex: Male : 1990 Arrival Date: 04/22/2024 Time: 11:47 Bed 9 Private MD: ED Physician Rowdy Murphy HPI: 04/22 12:50 This 34 yrs old Male presents to ER via Ambulatory with complaints of Mouth cp Swelling, Abscess tooth. 12:50 The patient presents with pain, swelling. The problem is located in the right upper cp gumline. 12:50 Onset: The symptoms/episode began/occurred last night. cp 12:50 Duration: The symptoms are continuous, and are steadily getting worse. Associated signs cp and symptoms: Pertinent positives: pain, Pertinent negatives: dysphagia, fever. Severity of symptoms: in the emergency department the symptoms are unchanged, despite home interventions. Historical: - Allergies: 12:04 No Known Allergies; iw - Home Meds: 12:04 None [Active]; iw - PMHx: 12:04 None; iw - PSHx: 12:04 None; iw - Immunization history:: Adult Immunizations unknown. - Infectious Disease History:: Denies. - Social history:: Smoking status: Patient denies any tobacco usage or history of. Patient uses street drugs, marijuana. ROS: 12:55 Constitutional: Negative for body aches, chills, fever, poor PO intake, cp 12:55 Eyes: Negative for injury, pain, redness, and discharge, cp 12:55 ENT: Positive for dental pain, Gum pain 12:55 Neck: Negative for stiffness, 12:55 Cardiovascular: Negative for chest pain, 12:55 Respiratory: Negative for cough, shortness of breath, wheezing, 12:55 Abdomen/GI: Negative for abdominal pain, nausea, vomiting, and diarrhea, 12:55 Neuro: Negative for altered mental status, headache, weakness, 12:55 All other systems are negative, Exam: 13:00 Constitutional: The patient appears in no acute distress, alert, awake, cp non-diaphoretic, non-toxic, well developed, well nourished, uncomfortable, 13:00 Head/Face: Normocephalic, atraumatic. cp 13:00 Eyes: Periorbital structures: appear normal, Conjunctiva: normal, no exudate, no injection, Sclera: no appreciated abnormality, Lids and lashes: appear normal, bilaterally, 13:00 ENT: External ear(s): are unremarkable, Ear canal(s): are normal, clear, TM's: dullness, bilaterally, Nose: is normal, Mouth: Lips: moist, Oral mucosa: moist, Gums: noted to have an abscess, on the gums, Posterior pharynx: Airway: Dental exam: dental caries, diffusely, pain, that is moderate, specifically in the upper right cuspid (#6) and upper right lateral incisor (#7), Voice: is normal, 13:00 Neck: ROM/movement: is normal, is supple, without pain, no range of motions limitations, 13:00 Chest/axilla: Inspection: normal, 13:00 Cardiovascular: Rate: tachycardic, 13:00 Respiratory: the patient does not display signs of respiratory distress, Respirations: normal, no use of accessory muscles, no retractions, labored breathing, is not present, Breath sounds: are clear throughout, no decreased breath sounds, no stridor, no wheezing, 13:00 Abdomen/GI: Inspection: abdomen appears normal, Palpation: abdomen is soft and non-tender, in all quadrants, 13:00 Neuro: Orientation: to person, place \T\ time. Mentation: is normal, Vital Signs: 12:02 BP 146 / 97; Pulse 100; Resp 18; Pulse Ox 98% on R/A; Weight 117.93 kg; Height 5 ft. 8 iw in. ; Pain 8/10; 13:15 BP 150 / 101; Pulse 95; Resp 18; Pulse Ox 97% on R/A; Pain 9/10; tl4 14:14 BP 142 / 86; Pulse 80; Resp 16; Temp 98.1(O); Pulse Ox 99% on R/A; Pain 4/10; tl4 12:02 Body Mass Index 39.53 (117.93 kg, 172.72 cm) iw 12:02 Pain Scale: Adult iw 13:15 Pain Scale: Adult tl4 14:14 Pain Scale: Adult tl4 Procedures: 14:00 I \T\ D: Incision and drainage was performed for an abscess of the right upper outer cp gumline Anesthetized with 4 ml's 1% Lidocaine. Incised with #11 blade. Drained small amount purulent fluid. the patient tolerated the procedure well. MDM: 11:58 Medical Screening Exam initiated cp 12:30 Differential diagnosis: dental caries, dental abscess, pericoronitis, aphthous ulcers, cp acute necrotizing ulcerative gingivitis, gingivostomatitis. 13:53 Data reviewed: vital signs, nurses notes, and as a result, I will discharge patient. cp Administered Medications: 13:13 Drug: HYDROcodone-acetaminophen PO 10 mg-325 mg 1 tabs PO once Route: PO; tl4 14:05 Follow up: Response: No adverse reaction; Pain is decreased tl4 13:13 Drug: Clindamycin PO 300 mg PO once Route: PO; tl4 14:05 Follow up: Response: No adverse reaction tl4 14:05 Drug: Lidocaine Infiltration (1 %) 5 ml 5 ml Infiltration once; to bedside {Note: tl4 administered by Hailee LOPEZ to affected site.} Volume: 5 ml; Route: Infiltration; 14:06 Follow up: Response: No adverse reaction; Pain is decreased tl4 Disposition Summary: 04/22/24 13:54 Discharge Ordered Notes: Location: Home cp Problem: new cp Symptoms: have improved cp Condition: Stable cp Diagnosis - Cellulitis and abscess of mouth cp Followup: cp - With: Private Physician - When: 2 - 3 days - Reason: Recheck today's complaints Discharge Instructions: - Discharge Summary Sheet cp - Dental Abscess cp Forms: - Medication Reconciliation Form cp - Antibiotic Education cp - Prescription Opioid Use cp - Patient Portal Instructions cp - Leadership Thank You Letter cp Prescriptions: - Anaprox DS 550 mg Oral Tablet - take 1 tablet ORAL route every 12 hours As needed; 20 tablet; Refills: 0, cp Product Selection Permitted - Clindamycin HCl 300 mg Oral Capsule - take 1 capsule ORAL route every 6 hours for 10 days; 40 capsule; Refills: 0, cp Product Selection Permitted Addendum: 04/24/2024 16:29 Co-signature as Attending Physician, Rowdy Murphy DO. m s3 Signatures: Promise Conde RN RN Zeb Sargent PA PA cp Sims, Marcus, DO DO ms3 Claudy Matt RN RN tl4 Corrections: (The following items were deleted from the chart) 04/23 10:34 04/22 13:00 I \T\ D: Incision and drainage was performed for an abscess of the right cp upper outer gumline Anesthetized with 4 ml's 1% Lidocaine. Incised with #11 blade. Drained small amount purulent fluid. the patient tolerated the procedure well, cp
[2024-04-22 14:29] VITALS: BP 142/86; TEMP 98.1; O2SAT 99
== END 2024-04-22 14:22 | disposition home or self-care (01) ==
LOC: ER 11:47
PROC: 0C95XZZ Drainage of Upper Gingiva, External Approach (ICD-10-PCS; principal; 2024-04-22)
DX: K12.2 Cellulitis and abscess of mouth (principal)
CPT/HCPCS: 99284; J2003